=== PATIENT | male | born 1965 | race Two or more races ===

== ENCOUNTER 2019-10-20 23:30 | Emergency (ER) | payer SELFPAY ==
[~2019-10-20] VITALS: Ht 162.6 cm; Wt 70.3 kg
[2019-10-20 23:40] VITALS: BP 145/77
[2019-10-21] MEDS ORDERED: INSULIN REGULAR, HUMAN 100 UNIT/ML 10 ML VIAL SQ ONE
--- NOTE | 2019-10-21 00:42 | NUR ---
PT BIBLAPD FOR BEING INTOXICATED. UPON ASSESSMENT PT IS AAOX4. AMBULATORY WITH STEADY GAIT. PT STATED HE IS NOT HOMELESS. BG WAS 322, MD AWARE. Patient discharged to home in stable condition. Written and verbal after care instructions given. Patient verbalizes understanding of instruction. Pt ambulated with steady gait. vss.
[2019-11-23] MEDS ORDERED: HYDR-4384 PO (10:49)
== END 2019-10-21 00:46 | disposition home or self-care (01) ==
LOC: ER 23:30
DX: R73.9 Hyperglycemia, unspecified (principal)
CPT/HCPCS: 82962-TC

== ENCOUNTER 2019-10-27 12:59 | Inpatient (IN) | payer OTHER ==
[~2019-10-27] VITALS: Ht 167.6 cm; Wt 67.1 kg
--- NOTE | 2019-10-27 13:00 | NUR ---
PT [id number], from the street, c/o abd pain since yesterday, pt is aaox4, not in respiratory distress, hooked to monitor, kept rested and comfortable, will continue to monitor.
[2019-10-27] MEDS ORDERED: INSU100V7 SQ (13:22)
[2019-10-27] MEDS ORDERED: TRAZ-257 PO (13:22)
[2019-10-27] MEDS ORDERED: pancrelipase PO (13:22)
[2019-10-27] MEDS ORDERED: QUET100T PO (13:22)
[2019-10-27] MEDS ORDERED: SERT50TA PO (13:22)
[2019-10-27] MEDS ORDERED: GABA600T12 PO (13:22)
[2019-10-27] MEDS ORDERED: ALBU90AE2 IH (13:22)
[2019-10-27] MEDS ORDERED: FAMO20TA8 PO (13:22)
[2019-10-27] MEDS ORDERED: GUAI-671 PO (13:22)
[2019-10-27] MEDS ORDERED: LIDO30CR TP (13:22)
[2019-10-27] MEDS ORDERED: BLOO-1672 MC (13:22)
--- NOTE | 2019-10-27 13:28 | NUR ---
SEEN AND EXAMINED BY ANGELY BARRON
[2019-10-27] MEDS ORDERED: ONDANSETRON HCL/PF 4 MG/2 ML VIAL IVP ONE (13:30)
[2019-10-27] MEDS ORDERED: MORPHINE SULFATE INJ 2 MG/ML DISP.SYRIN IV ONE ×3 (13:30→17:30)
[2019-10-27] MEDS ORDERED: IV NS 0.9% 1,000 ML BAG IV ONE ×2 (13:30→17:30)
--- NOTE | 2019-10-27 13:45 | NUR ---
pt iv line established, blood drawn and sent to lab.
--- NOTE | 2019-10-27 13:49 | NUR ---
urinal given but unable to provide urine specimen this time.
[2019-10-27] MEDS ORDERED: ONDANSETRON HCL/PF 4 MG/2 ML VIAL ONE (13:51)
[2019-10-27] MEDS ORDERED: MORPHINE SULFATE INJ 4 MG/ML DISP.SYRIN ONE ×3 (13:51→17:09)
[2019-10-27 13:52] LABS: BASOPHILS # (AUTO) 0.1 /CMM (0.0-0.2); BASOPHILS % (AUTO) 0.7 % (0.0-2.0); EOSINOPHILS % (AUTO) 0.2 % (0.0-6.0); HEMATOCRIT 37 % (39-51); HEMOGLOBIN 12.6 g/dL (13.5-17.5); LYMPHOCYTES # (AUTO) 0.9 /CMM (0.8-4.8); LYMPHOCYTES % (AUTO) 7.8 % (20.0-44.0); MEAN CORPUSCULAR HGB CONC 34 g/dl (31.0-36.0); MEAN CORPUSCULAR VOLUME 89 fL (80-96); MONOCYTES # (AUTO) 0.2 /CMM (0.1-1.30); MONOCYTES % (AUTO) 2.3 % (2.0-12.0); NEUTROPHILS # (AUTO) 9.9 /CMM (1.8-8.9); PLATELET COUNT (AUTO) 252 /CMM (150-450); RED BLOOD CELL COUNT(AUTO) 4.15 MIL/uL (4.5-6.0); WHITE BLOOD COUNT (AUTO) 11.1 K/uL (4.3-11.0)
[2019-10-27 14:14] LABS: BILIRUBIN,DIRECT 0.1 mg/dL (0.0-0.2); BILIRUBIN,TOTAL 0.5 mg/dL (0.2-1.0); CALCIUM, SERUM 9.3 mg/dL (8.5-10.1); POTASSIUM 4.7 mmol/L (3.5-5.1); TOTAL PROTEIN, SERUM 7.9 g/dL (6.4-8.2)
[2019-10-27] MEDS ORDERED: IOHEXOL-300 100 ML VIAL IV ONE (15:23)
[2019-10-27] MEDS ORDERED: IV NS 0.9% 250 ML IV ONE ×2 (15:23→17:48)
[2019-10-27] MEDS ORDERED: CT SWABBABLE VALVE TRANS SET 1 EA INFUS.SET MC ONE ×2 (15:23→17:48)
[2019-10-27 15:36] LABS: APPEARANCE,URINE Clear (CLEAR); BILIRUBIN,URINE Negative (NEGATIVE); BLOOD, URINE Negative Ery/uL (NEGATIVE); COLOR,URINE Light yellow (YELLOW); KETONES,URINE 15 (NEGATIVE); LEUKOCYTE ESTERASE ,URINE Negative (NEGATIVE); NITRITE, URINE Negative (NEGATIVE); PROTEIN,URINE Negative (NEGATIVE); UGLUCOSE >=1000 mg/dL (NEGATIVE); UROBILINOGEN,URINE 0.2 EU/dL (0.2)
[2019-10-27 15:44] LABS: CALCIUM, SERUM 8.8 mg/dL (8.5-10.1); POTASSIUM 4.6 mmol/L (3.5-5.1)
[2019-10-27 16:13] LABS: BACTERIA,URINE None seen /HPF (None Seen); RBC,URINE NONE SEEN /HPF (0-2); SQUAMOUS EPITHELIAL CELL,UR Rare /HPF (None Seen); WBC,URINE 0-2 /HPF (0-3)
[2019-10-27 16:14] LABS: MUCUS,URINE Few /LPF (None Seen); URINE AMORPHOUS PHOSPHATES Few /HPF (None Seen)
[2019-10-27] MEDS ORDERED: PIPERACILLIN /TAZOBACTAM 3.375 G in IV D5W 50 ML IV ONE (17:30)
[2019-10-27] MEDS ORDERED: MEROPENEM 1,000 MG in IV NS 0.9% 100 ML IV ONE (17:30)
--- NOTE | 2019-10-27 17:45 | NUR ---
PT IS WHEELED TO CT SCAN VIA [facility].
[2019-10-27] MEDS ORDERED: IOHEXOL-350 100 ML VIAL IV ONE (17:48)
--- NOTE | 2019-10-27 19:10 | NUR ---
REPORT GIVEN TO LAURA DESOUZA FOR YOLANDA.
--- NOTE | 2019-10-27 19:17 | NUR ---
PAGED DR. SHELBY GENERAL SURGERY.
[2019-10-27] MEDS ORDERED: HYDROMORPHONE 1 MG/1 ML DISP.SYRIN ONE (19:26)
[2019-10-27] MEDS ORDERED: METRONIDAZOLE 500MG/ NS 100ML 100 ML IV ONE (19:26)
[2019-10-27] MEDS ORDERED: FLAGYL/NS RTU 500 MG/100 ML PIGGYBACK IV ONE (19:30)
[2019-10-27] MEDS ORDERED: HYDROMORPHONE INJ 0.5 MG/0.5 ML SYRINGE IV ONE (19:30)
--- NOTE | 2019-10-27 19:46 | NUR ---
NURSING SUP GAVE ICU BED 256.
--- NOTE | 2019-10-27 20:12 | NUR ---
REPORT GIVEN TO LAURA HOLLY FOR YOLANDA
--- NOTE | 2019-10-27 20:13 | NUR ---
PT GOING TO 259
[2019-10-27] MEDS ORDERED: Z GUARD REMEDY 2 OZ OINT TP PRN (21:00)
[2019-10-27] MEDS ORDERED: ACETAMINOPHEN 325 MG TABLET PO PRN (21:00)
--- NOTE | 2019-10-27 21:18 | NUR ---
ESCROW CLOSER NOTES ADMITTED A54 Y/O MALE A/O X4 BLE TO MAKE NEEDS KNOWN , WITH ADMITTING DX OF SEVERE SEPSIS , PT IS NPO STATUS , BODY CHECK DONE NO SKIN ISSUE EXCEPT THE ABDOMINAL PUNCTURE SITE PROCEDURE DONE IN REPLACED BY [facility] .NO BLEEDING NOTED PT ON ROOM AIR ON TELE MONITOR SR SATING 100%, ALL NEEDS ATTENDED TOO CALL LIGHT WITHIN REACH , KEPT PTS CLEAN DRY AND COMFORTABLE .V/S STABLE AFEBRILE .WILL CONTINUE TO MONITOR PT WITH IV SITE INTACT AND PATENT ON RIGHT AC AT 18 GAUGE.
--- NOTE | 2019-10-27 21:21 | NUR ---
PT TRANSPORTED TO UNIT ON [facility] W/ ACLS PROTOCOL. EMT AND RN AT BEDSIDE. NAD NOTED. PT AMBULATED FROM [facility] TO BED W/O ASSIST ON STEADY GAIT
[2019-10-27] MEDS ORDERED: IV NS 0.9% 250 ML IV PRN (21:30)
[2019-10-27 21:43] VITALS: BP 135/101
[2019-10-27 22:00] VITALS: BP 147/87
[2019-10-27] MEDS ORDERED: IV D5 LR 1,000 ML IV PRN (22:00)
[2019-10-27] MEDS ORDERED: MEROPENEM 1 G in IV NS 0.9% 100 ML IV ONE (22:00)
[2019-10-27] MEDS: HYDROMORPHONE INJ 2 MG/ML DISP.SYRIN IV PRN (22:00)
[2019-10-27] MEDS ORDERED: MEROPENEM 1 G VIAL IV ONE (22:08)
[2019-10-27 23:00] VITALS: BP 135/80
[2019-10-27] MEDS ORDERED: DEXTROSE 50%-WATER 50 ML DISP.SYRIN IV PRN (23:00)
[2019-10-28] VITALS (16 sets, daily range): BP systolic 124–169; BP diastolic 70–99
--- NOTE | 2019-10-28 | NUR ---
BLOOD SUGAR FOR 12MN IS 276 MMOL/DL 6 UNITS OF REGULAR INSULIN GIVEN PER SLIDING SCALE PT ON D5LR AT 75CC/HR WILL CHECK BLOOD SUGAR AGAIN AT 6AM.
[2019-10-28] MEDS: BLOOD SUGAR DIAGNOSTIC 1 EACH STRIP IN SCH ×4 (00:47→18:19)
[2019-10-28] MEDS: INSULIN REGULAR, HUMAN 100 UNIT/ML 3 ML VIAL SQ PRN ×3 (00:50→13:16)
[2019-10-28] MEDS ORDERED: MEROPENEM 1 G in IV NS 0.9% 100 ML IV ONE (02:00)
[2019-10-28] MEDS: HYDROMORPHONE INJ 2 MG/ML DISP.SYRIN IV PRN ×2 (02:25→07:43)
[2019-10-28 04:47] LABS: BASOPHILS % (AUTO) 0.3 % (0.0-2.0); EOSINOPHILS % (AUTO) 0.9 % (0.0-6.0); HEMATOCRIT 36 % (39-51); HEMOGLOBIN 12.5 g/dL (13.5-17.5); LYMPHOCYTES # (AUTO) 1.2 /CMM (0.8-4.8); LYMPHOCYTES % (AUTO) 13.1 % (20.0-44.0); MEAN CORPUSCULAR HGB CONC 35 g/dl (31.0-36.0); MEAN CORPUSCULAR VOLUME 91 fL (80-96); MONOCYTES # (AUTO) 0.7 /CMM (0.1-1.30); MONOCYTES % (AUTO) 7.3 % (2.0-12.0); NEUTROPHILS # (AUTO) 7.1 /CMM (1.8-8.9); NEUTROPHILS % (AUTO) 78.4 % (43.0-81.0); PLATELET COUNT (AUTO) 224 /CMM (150-450); RED BLOOD CELL COUNT(AUTO) 3.99 MIL/uL (4.5-6.0)
[2019-10-28 05:10] LABS: ALBUMIN 3.4 g/dL (3.4-5.0); BILIRUBIN,TOTAL 0.8 mg/dL (0.2-1.0); CALCIUM, SERUM 8.3 mg/dL (8.5-10.1); CREATININE 0.9 mg/dL (0.6-1.3); MAGNESIUM 1.8 mg/dL (1.8-2.4); PHOSPHORUS 2.5 mg/dL (2.5-4.9); POTASSIUM 3.9 mmol/L (3.5-5.1); TOTAL PROTEIN, SERUM 6.9 g/dL (6.4-8.2)
[2019-10-28 05:11] LABS: THYROID STIMULATING HORMONE 6.297 uIU/mL (0.358-3.74)
[2019-10-28] MEDS ORDERED: METRONIDAZOLE 500MG/ NS 100ML 100 ML IV ONE (05:30)
[2019-10-28] MEDS: METRONIDAZOLE 500MG/ NS 100ML 500 MG in PREMIX 1 EA IV SCH ×3 (05:32→20:24)
--- NOTE | 2019-10-28 06:39 | NUR ---
RN CLOSING NOTES: PATIENT IN BED, ASLEEP, EASILY AROUSABLE. NO RESPIRATORY DISTRESS, TOLERATING ROOM AIR WELL. NO PAIN AT THIS TIME. BLOOD SUGAR AT 0600 163. COVERAGE GIVEN ORDERED. WILL ENDORSE TO AM SHIFT NURSE FOR CONTINUITY OF CARE.
[2019-10-28] MEDS: ONDANSETRON HCL/PF 4 MG/2 ML VIAL IVP PRN ×2 (07:51→18:18)
[2019-10-28] MEDS ORDERED: HYDROMORPHONE INJ 2 MG/ML DISP.SYRIN ONE ×2 (08:56→10:32)
[2019-10-28] MEDS ORDERED: ROCURONIUM BROMIDE 50 MG/5 ML ONE (08:56)
--- NOTE | 2019-10-28 10:25 | NUR ---
RN NOTE 0715: Received patient A/Ox4. With c/o 9/10 mid abdominal pain, Dilaudid and Zofran given, also with c/o mild nausea. Dr. Jhaveri called with plan for exlap, patient aware and consent signed. Per MD he will be here around 0900. SR 80's on the monitor. Remained NPO. RAC PIV intact, D5LR @ 75 ongoing. 0900: Picked up by OR personnels. VSS. Preop checklist done. Patient aware for the procedure.
[2019-10-28] MEDS ORDERED: ONDANSETRON HCL/PF 4 MG/2 ML VIAL ONE (10:36)
[2019-10-28] MEDS ORDERED: FENTANYL PF 100MCG/2ML AMPUL ONE (10:55)
--- NOTE | 2019-10-28 12:33 | NUR ---
RN NOTE LA 2.2, informed Dr. Jhaveri, awaiting for call back.
[2019-10-28] MEDS: MEROPENEM 1 G in IV NS 0.9% 100 ML IV SCH ×2 (12:44→20:23)
[2019-10-28] MEDS ORDERED: MEROPENEM 1 G in IV NS 0.9% 100 ML IV SCH (13:00)
[2019-10-28] MEDS: MORPHINE SULFATE INJ 2 MG/ML DISP.SYRIN IV PRN ×4 (13:59→23:15)
--- NOTE | 2019-10-28 15:50 | NUR ---
ENTERPRISE RECORDS ANALYST NOTES PATIENT RECEIVED AWAKE IN BED, NO RESPIRATORY DISTRESS, COMPLAINING OF ABDOMINAL PAIN /, WILL ADMINISTER PAIN MEDICATION ORDERED. NO N/V. SKIN WARM TO TOUCH, IV ACCESS SITE ON THE RAC #18G, INTACT AND PATENT. SKIN ASSESSED, NO SKIN BREAKDOWN, DRESSING C/D/I ON ABDOMINAL PUNCTURE SITE. PATIENT'S BELONGINGS ACCOUNTED FOR AND SIGNED. PATIENT'S NEEDS ATTENDED, BED ON LOWEST LOCKED POSITION, CALL LIGHT WITHIN REACH. WILL CONTINUE TO MONITOR.
--- NOTE | 2019-10-28 16:04 | NUR ---
RN NOTE Transferred patient to tele 323-2 using ACLS protocol. No any significant changes. Abdominal Sx site dressing CDI. LA 2.2, MS aware, continue ATB therapy. PIV intact, IVF infusing as ordered. Report given to Tiffanie SANCHEZ for YOLANDA.
--- NOTE | 2019-10-28 18:50 | NUR ---
MANAGER FLOAT NOTES PATIENT RESTING IN BED, NO RESPIRATORY DISTRESS, NO C/O PAIN AT THIS TIME. SKIN WARM TO TOUCH, IV ACCESS SITE ON THE RAC #18G, INTACT AND PATENT. SKIN WARM TO TOUCH, IV ACCESS SITES INTACT AND PATENT. PATIENT'S NEEDS ATTENDED, BED ON LOWEST LOCKED POSITION, CALL LIGHT WITHIN REACH. WILL ENDORSE TO ONCOMING NURSE.
--- NOTE | 2019-10-28 19:32 | NUR ---
TELE/RN OPENING NOTES: RECEIVED PATIENT AWAKE IN BED, NO RESPIRATORY DISTRESS, NO COMPLAINS OF PAIN AT THIS TIME, IV ACCESS SITE ON THE RAC #18G, INTACT AND PATENT. SKIN ASSESSED, NO SKIN BREAKDOWN, DRESSING C/D/I ON ABDOMINAL PUNCTURE SITE. PATIENT'S NEEDS ATTENDED AT THIS TIME, SAFETY MEASURES IN PLACE. BED ON LOWEST LOCKED POSITION, CALL LIGHT WITHIN REACH WITH SR UP X2. WILL CONTINUE TO MONITOR PT. ACCORDINGLY.
[2019-10-29] VITALS: BP 148/80
[2019-10-29] MEDS: BLOOD SUGAR DIAGNOSTIC 1 EACH STRIP IN SCH ×5 (00:05→23:01)
[2019-10-29] MEDS: INSULIN REGULAR, HUMAN 100 UNIT/ML 3 ML VIAL SQ PRN ×4 (00:10→23:05)
[2019-10-29] MEDS: ONDANSETRON HCL/PF 4 MG/2 ML VIAL IVP PRN ×3 (01:27→17:59)
[2019-10-29] MEDS: MORPHINE SULFATE INJ 2 MG/ML DISP.SYRIN IV PRN ×8 (02:46→23:09)
[2019-10-29 04:37] VITALS: BP 144/89
[2019-10-29] MEDS: MEROPENEM 1 G in IV NS 0.9% 100 ML IV SCH ×3 (04:37→20:56)
[2019-10-29] MEDS: METRONIDAZOLE 500MG/ NS 100ML 500 MG in PREMIX 1 EA IV SCH ×3 (04:37→20:04)
--- NOTE | 2019-10-29 07:26 | NUR ---
LOG YARD MANAGER NOTES RECEIVED REPORT ON PATIENT FROM PM NURSE. PATIENT IS SLEEPING IN BED, APPEARS TO BE COMFORTABLE. NO SOB/ RESPIRATORY DISTRESS NOTED. CALL LIGHT IS WITHIN REACH. BED IN LOWEST LOCKED POSITION WITH SIDE RAILS UP X2. WILL CONTINUE TO MONITOR PATIENT.
--- NOTE | 2019-10-29 07:33 | NUR ---
TELE/RN CLOSING NOTES: PATIENT RESTING IN BED, NO RESPIRATORY DISTRESS, NO C/O PAIN AT THIS TIME. SKIN WARM TO TOUCH, IV ACCESS SITES INTACT AND PATENT. PAIN WAS MANAGED THROUGHOUT THE SHIFT. PATIENT'S NEEDS ATTENDED, BED ON LOWEST LOCKED POSITION, CALL LIGHT WITHIN REACH. WILL ENDORSE TO ONCOMING NURSE.
[2019-10-29 16:00] VITALS: BP 147/88
--- NOTE | 2019-10-29 19:00 | NUR ---
LAURA lovelace opening notes Received Pt from morning nurse. Pt is alert and orientedX4. Respiration is normal. No SOB. No S/s of distress noted. IV sites at RAC# 18 is clean, intact, patent and SL. IV sites at LFA#18 is clean, intact, patent and SL. Abdominal dressing is clean, intact and dry. Safety precautions is maintained. Bed at low position, brakes locked, siderails upX2, and call light is within reach. Will continue to monitor. Addendum: 10/29/19 at 2116 by JIN CHARLES RN Pt is resting in bed comfortably.
--- NOTE | 2019-10-29 19:14 | NUR ---
MS RN CLOSING NOTES PATIENT IS IN BED WATCHING TV. BED IS IN LOWEST LOCKED POSITION WITH SIDE RAILS UP X2. NO SOB/ RESPIRATORY DISTRESS NOTED. CALL LIGHT IS WITHIN REACH. MEDS HAVE BEEN GIVEN. WILL ENDORSE REPORT TO PM NURSE.
[2019-10-29 20:00] VITALS: BP 147/88
[2019-10-29 20:00] LABS: BASOPHILS % (AUTO) 0.2 % (0.0-2.0); EOSINOPHILS % (AUTO) 3.9 % (0.0-6.0); HEMATOCRIT 37 % (39-51); HEMOGLOBIN 12.5 g/dL (13.5-17.5); LYMPHOCYTES # (AUTO) 0.9 /CMM (0.8-4.8); LYMPHOCYTES % (AUTO) 8.3 % (20.0-44.0); MEAN CORPUSCULAR HGB CONC 33 g/dl (31.0-36.0); MEAN CORPUSCULAR VOLUME 92 fL (80-96); MONOCYTES # (AUTO) 0.4 /CMM (0.1-1.30); MONOCYTES % (AUTO) 3.4 % (2.0-12.0); NEUTROPHILS # (AUTO) 8.9 /CMM (1.8-8.9); NEUTROPHILS % (AUTO) 84.2 % (43.0-81.0); PLATELET COUNT (AUTO) 210 /CMM (150-450); RED BLOOD CELL COUNT(AUTO) 4.06 MIL/uL (4.5-6.0); WHITE BLOOD COUNT (AUTO) 10.6 K/uL (4.3-11.0)
[2019-10-29 20:15] LABS: CALCIUM, SERUM 8.5 mg/dL (8.5-10.1); MAGNESIUM 1.7 mg/dL (1.8-2.4); PHOSPHORUS 2.1 mg/dL (2.5-4.9)
--- NOTE | 2019-10-29 20:17 | NUR ---
RN medsurg notes Pt is complaining of pain on his abdomen and requesting pain meds. Administered morphine 2 mg/1 ml IV push as ordered for pain on abdomen. VS is stable. Safety precautions is maintained. Will continue to monitor.
[2019-10-29 20:27] VITALS: BP 147/88
--- NOTE | 2019-10-29 22:00 | NUR ---
RN medsurg notes Called and informed Dr. Chappell regarding Pt's lab. na 129, phos 2.1, and mag 1.7. Received order from . magnesium 1 gm and neutra phos 2 packet. Order carried out. Will continue to monitor.
[2019-10-29] MEDS: Magnesium 1GM/D5W 100ML PREMIX 100 ML IV SCH ×2 (22:17→23:47)
[2019-10-29] MEDS ORDERED: NEUTRA PHOS 1 POWD.PACKET PO ONE (22:30)
[2019-10-29 23:00] VITALS: BP 156/84
--- NOTE | 2019-10-29 23:09 | NUR ---
RN saulsurlucy notes Pt si complaining of pain on his abdomen and requesting morphine. Pt stated "I'm in pain. I need my morphine now." Administered morphine 2 mg/iv push as ordered for pain. VS is taken. Safety precautions is maintained. Will continue to monitor. BP 156/84, PULSE 80, TEMP 98.8, RESP 20 O2 SAT IS 100%.
[2019-10-30 01:19] VITALS: BP 136/77
[2019-10-30] MEDS: MORPHINE SULFATE INJ 2 MG/ML DISP.SYRIN IV PRN ×8 (01:22→23:14)
[2019-10-30] MEDS: ONDANSETRON HCL/PF 4 MG/2 ML VIAL IVP PRN ×3 (03:07→19:57)
--- NOTE | 2019-10-30 03:08 | NUR ---
RN medsurg notes Pt is feeling nauseated and requesting med. Administered zofran 4 mg/2 ml iv push as ordered for nausea. Will continue to monitor.
[2019-10-30 04:02] VITALS: BP 146/95
[2019-10-30] MEDS: METRONIDAZOLE 500MG/ NS 100ML 500 MG in PREMIX 1 EA IV SCH ×3 (04:07→20:08)
[2019-10-30] MEDS: MEROPENEM 1 G in IV NS 0.9% 100 ML IV SCH ×3 (04:08→21:29)
[2019-10-30] MEDS: INSULIN REGULAR, HUMAN 100 UNIT/ML 3 ML VIAL SQ PRN ×4 (06:19→23:17)
[2019-10-30] MEDS: BLOOD SUGAR DIAGNOSTIC 1 EACH STRIP IN SCH ×3 (06:21→17:27)
--- NOTE | 2019-10-30 06:24 | NUR ---
RN medsur notes Pt refused to have blood drawn. Made aware risks and benefits. Pt stated " you guys keep waking me up. Come back later." Will endorse to morning nurse.
--- NOTE | 2019-10-30 07:00 | NUR ---
RN medsurg closing notes Pt is resting in bed comfortably. Pt is alert and orientedX4. Respiration is normal. No SOB. No S/S of distress noted. Pt is in stable condition. IV sites at RAC# 18 is clean, intact, patent, SL. IV sites at LFA # 18 is clean, intact, patent and infusing well. Routine meds were given as ordered. Kept Pt clean, dry and comfortable. Safety precautions is maintained. Bed at low position, brakes locked, side rails upX2 and call light is within reach. Will endorse to morning nurse for YOLANDA.
--- NOTE | 2019-10-30 07:31 | NUR ---
RN OPENING NOTE PT WAS RECEIVED IN BED AT LOWEST AND LOCKED POSITION WITH SIDE RAILS UP X2, A/O X4 BREATHING EVEN AND UNLABORED ON RA, S/P SURGERY WITH ON 10/28/19, IV ARE PATENT AND INTACT, PT REFUSED BLOOD DRAW THIS AM, SAFETY PRECAUTIONS IN PLACE, CALL LIGHT IN REACH, WILL MONITOR ACCORDINGLY
[2019-10-30 08:00] VITALS: BP 120/83
[2019-10-30 09:19] LABS: BASOPHILS % (AUTO) 0.4 % (0.0-2.0); EOSINOPHILS % (AUTO) 0.7 % (0.0-6.0); HEMATOCRIT 36 % (39-51); HEMOGLOBIN 12.1 g/dL (13.5-17.5); LYMPHOCYTES # (AUTO) 1.7 /CMM (0.8-4.8); LYMPHOCYTES % (AUTO) 18.4 % (20.0-44.0); MEAN CORPUSCULAR HGB CONC 34 g/dl (31.0-36.0); MEAN CORPUSCULAR VOLUME 91 fL (80-96); MONOCYTES # (AUTO) 0.7 /CMM (0.1-1.30); MONOCYTES % (AUTO) 7.1 % (2.0-12.0); NEUTROPHILS # (AUTO) 6.8 /CMM (1.8-8.9); NEUTROPHILS % (AUTO) 73.4 % (43.0-81.0); PLATELET COUNT (AUTO) 215 /CMM (150-450); RED BLOOD CELL COUNT(AUTO) 3.96 MIL/uL (4.5-6.0); WHITE BLOOD COUNT (AUTO) 9.3 K/uL (4.3-11.0)
[2019-10-30 09:34] LABS: CREATININE 0.9 mg/dL (0.6-1.3); MAGNESIUM 1.9 mg/dL (1.8-2.4); PHOSPHORUS 2.4 mg/dL (2.5-4.9); POTASSIUM 3.6 mmol/L (3.5-5.1)
[2019-10-30] MEDS ORDERED: K PHOS NEUTRAL 250 MG TABLET PO ONE (11:30)
[2019-10-30 16:00] VITALS: BP 127/80
--- NOTE | 2019-10-30 18:23 | NUR ---
RN CLOSING NOTE PT IN BED AT LOWEST AND LOCKED POSITION WITH SIDE RAILS UP X2, A/O X4 BREATHING EVEN AND UNLABORED ON RA, IV ARE PATENT AND INTACT, SAFETY PRECAUTIONS IN PLACE, CALL LIGHT IN REACH, ALL NEEDS ATTENDED TO, WILL ENDORSE TO NIGHT RN FOR YOLANDA.
[2019-10-30] MEDS: IV NS 0.9% 1,000 ML IV PRN (18:49)
--- NOTE | 2019-10-30 19:25 | NUR ---
MS RN OPENING NOTES PATIENT AWAKE AND RESTING IN BED COMFORTABLY. A/OX4. ABLE TO VERBALIZE NEEDS. ON ROOM AIR. NO S/S OF ACUTE RESPIRATORY DISTRESS AND NO COMPLAINTS OF PAIN AT THIS TIME. IV PRESENT ON RIGHT AC, SIZE 18 & LEFT FOREARM, SIZE 18, BOTH INTACT & PATENT, HEP LOCKED. SAFETY MEASURES IN PLACE. BED LOCKED, ALARM ON, SEMI-GONSALES'S POSITION, CALL LIGHT WITHIN REACH. WILL CONTINUE TO MONITOR.
--- NOTE | 2019-10-30 19:57 | NUR ---
MS RN NOTES PATIENT COMPLAINING OF UPPER ABDOMINAL PAIN RATED 9/10. PER PATIENT'S REQUEST, ADMINISTERED PRN MORPHINE 2MG. VITAL SIGNS - BP: 128/89 HR: 68 RR: 17 SPO2: 98 ON ROOM AIR. SAFETY MEASURES IN PLACE, CALL LIGHT WITHIN REACH. WILL CONTINUE TO MONITOR.
[2019-10-30 20:00] VITALS: BP 128/89
[2019-10-31] MEDS: BLOOD SUGAR DIAGNOSTIC 1 EACH STRIP IN SCH ×4 (00:05→17:14)
[2019-10-31] MEDS: MORPHINE SULFATE INJ 2 MG/ML DISP.SYRIN IV PRN ×7 (03:11→23:28)
[2019-10-31 03:20] VITALS: BP 130/83
[2019-10-31] MEDS: METRONIDAZOLE 500MG/ NS 100ML 500 MG in PREMIX 1 EA IV SCH ×3 (04:05→20:06)
[2019-10-31] MEDS: MEROPENEM 1 G in IV NS 0.9% 100 ML IV SCH ×3 (05:18→20:08)
[2019-10-31] MEDS: INSULIN REGULAR, HUMAN 100 UNIT/ML 3 ML VIAL SQ PRN ×3 (06:15→17:11)
--- NOTE | 2019-10-31 07:30 | NUR ---
MS/RN Opening note Received patient AOx 4, able to responds all stimuli. patient refused take vital sign this morning, no c/o pain at this time. Respiratory even and unlabored with room air. No s/s of adverse reaction from atb therapy. Skin iswarm to touch, clean/dry, intact IV site. Keep lower position of bed with elevated HOB. Call light within reach, will continue to monitor.
--- NOTE | 2019-10-31 07:32 | NUR ---
MS RN CLOSING NOTES PATIENT SLEEPING IN BED. A/OX4. ABLE TO VERBALIZE NEEDS. ON ROOM AIR. NO S/S OF ACUTE RESPIRATORY DISTRESS AND NO COMPLAINTS OF PAIN AT THIS TIME. IV PRESENT ON RIGHT AC, SIZE 18 & LEFT FOREARM, SIZE 18, BOTH INTACT & PATENT, HEP LOCKED. SAFETY MEASURES IN PLACE. BED LOCKED, ALARM ON, SEMI-GONSALES'S POSITION, CALL LIGHT WITHIN REACH. WILL ENDORSE TO DAY SHIFT NURSE TO FOLLOW PLAN OF CARE
--- NOTE | 2019-10-31 10:00 | NUR ---
Patient refused physical therapy, Dr. Jhaveri made aware.
[2019-10-31 16:00] VITALS: BP 118/77
[2019-10-31 17:14] LABS: CALCIUM, SERUM 8.2 mg/dL (8.5-10.1); CREATININE 1.2 mg/dL (0.6-1.3); MAGNESIUM 1.7 mg/dL (1.8-2.4); PHOSPHORUS 3.1 mg/dL (2.5-4.9); POTASSIUM 3.7 mmol/L (3.5-5.1)
--- NOTE | 2019-10-31 18:30 | NUR ---
MS/RN Closing note patient in bed comfortably, no c/o ABD pain at this time. Noticed BS high after administered insulin made aware Dr Davalos and received order sliding scale change mild to moderate. Skin is warm to touch, clean/dry, intact IV sire. Respiratory even and unlabored with room air. Keep lower position of the bed with elevated HOB, Call light within reach, will endorse machinist 2nd shift.
[2019-10-31 18:35] LABS: THYROID STIMULATING HORMONE 8.942 uIU/mL (0.358-3.74); URIC ACID 3.9 mg/dL (2.6-7.2)
[2019-10-31] MEDS: IV NS 0.9% 1,000 ML IV PRN (19:46)
[2019-10-31 20:00] VITALS: BP 125/73
[2019-10-31] MEDS ORDERED: DEXTROSE 50%-WATER 50 ML DISP.SYRIN IV PRN (20:30)
[2019-10-31] MEDS: BLOOD SUGAR DIAGNOSTIC 1 EACH STRIP VI SCH (21:59)
[2019-10-31] MEDS ORDERED: BLOOD SUGAR DIAGNOSTIC 1 EACH STRIP IN SCH (22:00)
[2019-10-31] MEDS: *INSULIN REGULAR(HUMULIN R)HUM 100 UNIT/ML VIAL SQ PRN (22:02)
--- NOTE | 2019-10-31 23:20 | NUR ---
placed case management and social service consult. patient asking about discharge. reports he is recent resident of sober living home and he has lost touch with them. patient asked if he would like ccase management to come and see him to discuss discharge and he agreed. case management consulted for dc planning. social psychologist consult placed for hx of drug abuse per protocol.
[2019-11-01] MEDS: MORPHINE SULFATE INJ 2 MG/ML DISP.SYRIN IV PRN ×4 (03:13→17:02)
[2019-11-01] MEDS: METRONIDAZOLE 500MG/ NS 100ML 500 MG in PREMIX 1 EA IV SCH ×2 (04:09→13:46)
[2019-11-01] MEDS: MEROPENEM 1 G in IV NS 0.9% 100 ML IV SCH ×2 (04:10→13:46)
[2019-11-01] MEDS: IV NS 0.9% 1,000 ML IV PRN (04:10)
[2019-11-01] MEDS: INSULIN REGULAR, HUMAN 100 UNIT/ML 3 ML VIAL SQ PRN ×2 (06:40→17:08)
[2019-11-01] MEDS: BLOOD SUGAR DIAGNOSTIC 1 EACH STRIP VI SCH ×3 (07:26→17:02)
--- NOTE | 2019-11-01 07:30 | NUR ---
MS/RN Opening note Received patient AOx 4, able to responds all stimuli. patient does no c/o pain at this time. Respiratory even and unlabored with room air. No s/s of adverse reaction from atb therapy. Skin iswarm to touch, clean/dry, intact IV site. Keep lower position of bed with elevated HOB. Call light within reach, will continue to monitor.
[2019-11-01 08:00] VITALS: BP_SYST 132; BP_SYST 137; BP_DIAS 88
[2019-11-01] MEDS: *INSULIN REGULAR(HUMULIN R)HUM 100 UNIT/ML VIAL SQ PRN (13:44)
--- NOTE | 2019-11-01 15:27 | NUR ---
SEALER AIRCRAFT and pt's adult protective caseworker Emma met with the pt bedside. Pt states he resides in a sober living through [facility] but cannot seem to remember the phone number to his sober living or a name. SEALER AIRCRAFT gave pt contact number to [facility] . Pt is hoping he will be able to go back to his sober living. Pt's belongings are at the sober living. Pt to call [facility] and f/u with adult protective caseworker Emma regarding d/c plan. Pt states, his father will pick him up from the hospital at time of discharge. SEALER AIRCRAFT provided pt a list of addiction resources which include list of sober livings.
[2019-11-01 16:00] VITALS: BP 153/88
--- NOTE | 2019-11-01 17:55 | NUR ---
MS/RN Note Patient having dinner, waiting his father pic him up to take him to the sober living. Patient refused take picture of post Exo, Laparotomy site and treatment. Patient signed discharge instruction, homeless waiver. Skin is warm to touch, respiratory even and unlabored, in stable condition.
--- NOTE | 2019-11-01 18:40 | NUR ---
Pt left facility with accompanied by his father, pt refused change dressing and take post Sx picture on ABD, extra dressing provided when pt discharge, in stable condition.
[2019-11-23] MEDS ORDERED: HYDR-4384 PO (10:49)
== END 2019-11-01 18:43 | disposition home or self-care (01) | DRG 710 ==
LOC: ER 13:06 → ICU 20:50 → TELE 10-28 15:48 → MED 10-29 08:30
PROVIDERS: ADMIT Hospitalist
PROC: 0DJW0ZZ Inspection of Peritoneum, Open Approach (ICD-10-PCS; principal; 2019-10-28)
DX: A41.9 Sepsis, unspecified organism (principal); K55.059 Acute (reversible) ischemia of intestine, part and extent unspecified; R65.21 Severe sepsis with septic shock; E11.65 Type 2 diabetes mellitus with hyperglycemia; K66.8 Other specified disorders of peritoneum; E83.42 Hypomagnesemia; E83.39 Other disorders of phosphorus metabolism; E87.1 Hypo-osmolality and hyponatremia; E87.2 Acidosis; K86.1 Other chronic pancreatitis; K55.9 Vascular disorder of intestine, unspecified; R65.20 Severe sepsis without septic shock; K63.89 Other specified diseases of intestine; K44.9 Diaphragmatic hernia without obstruction or gangrene; D64.9 Anemia, unspecified; K21.9 Gastro-esophageal reflux disease without esophagitis; F29 Unspecified psychosis not due to a substance or known physiological condition; F32.9 Major depressive disorder, single episode, unspecified; Z88.0 Allergy status to penicillin; Z79.51 Long term (current) use of inhaled steroids; Z79.4 Long term (current) use of insulin; F12.90 Cannabis use, unspecified, uncomplicated; Z86.14 Personal history of Methicillin resistant Staphylococcus aureus infection; Z87.01 Personal history of pneumonia (recurrent); Z87.891 Personal history of nicotine dependence; Z91.19 Patient's noncompliance with other medical treatment and regimen; Z68.1 Body mass index [BMI] 19.9 or less, adult
CPT/HCPCS: 36415; 71045-TC; 80048-TC; 80053-TC; 80061-TC; 80076-TC; 81000-TC; 82962-TC; 83605-TC; 83690-TC; 83735-TC; 84100-TC; 84443-TC; 84550-TC; 85025-TC; 85730-TC; 86850-TC; 87040-TC; 87081-TC; 97116-TC; 97530-TC; A4216; G0378; J1100; J1170; J1815; J1885; J2185; J2270; J2405; J2543; J2704; J3010; J3475; J3480; J3490; J7030; J7040; J7050; J7060; Q9967

== ENCOUNTER 2019-11-19 20:54 | Inpatient (IN) | payer OTHER ==
[~2019-11-19] VITALS: Ht 167.6 cm; Wt 51.7 kg
[~2019-11-19 20:54] MED LIST: ALBU90AE2 IH; BLOO-1672 MC; FAMO20TA8 PO; GABA600T12 PO; GUAI-671 PO; INSU100V7 SQ; LIDO30CR TP; QUET100T PO; SERT50TA PO; TRAZ-257 PO; pancrelipase PO
--- NOTE | 2019-11-19 20:56 | NUR ---
PT BIBRA C/O GENERALIZED EXCRUCIATING ABDOMINAL PAIN S/P PANCREATIC SURGERY X 2 WEEKS. +NVD AND SOB. PT AAOX4, RR EVEN AND UNLABORED ON W NAD NOTED. PT CONNECTED TO THE CARDIAC MONITR AND POX. WILL CONTINUE TO MONITOR
[2019-11-19] MEDS ORDERED: IV NS 0.9% 1,000 ML BAG IV ONE (21:00)
[2019-11-19] MEDS ORDERED: MORPHINE SULFATE INJ 2 MG/ML DISP.SYRIN ONE (21:03)
[2019-11-19] MEDS ORDERED: ONDANSETRON HCL/PF 4 MG/2 ML VIAL ONE (21:03)
[2019-11-19 21:19] LABS: BASOPHILS # (AUTO) 0.2 /CMM (0.0-0.2); BASOPHILS % (AUTO) 3.3 % (0.0-2.0); EOSINOPHILS % (AUTO) 2.2 % (0.0-6.0); HEMATOCRIT 35 % (39-51); HEMOGLOBIN 11.8 g/dL (13.5-17.5); LYMPHOCYTES # (AUTO) 1.2 /CMM (0.8-4.8); LYMPHOCYTES % (AUTO) 20.6 % (20.0-44.0); MEAN CORPUSCULAR HGB CONC 34 g/dl (31.0-36.0); MEAN CORPUSCULAR VOLUME 92 fL (80-96); MONOCYTES # (AUTO) 0.3 /CMM (0.1-1.30); MONOCYTES % (AUTO) 5.3 % (2.0-12.0); NEUTROPHILS # (AUTO) 3.9 /CMM (1.8-8.9); NEUTROPHILS % (AUTO) 68.6 % (43.0-81.0); PLATELET COUNT (AUTO) 216 /CMM (150-450); WHITE BLOOD COUNT (AUTO) 5.7 K/uL (4.3-11.0)
--- NOTE | 2019-11-19 21:20 | NUR ---
CALL LIGHT WITHIN REACH
--- NOTE | 2019-11-19 21:20 | NUR ---
BLOOD COLLECTED AND SENT TO LAB
[2019-11-19] MEDS ORDERED: ONDANSETRON HCL/PF - ER 4 MG/2 ML VIAL IV ONE (21:30)
[2019-11-19] MEDS ORDERED: MORPHINE SULFATE INJ 2 MG/ML DISP.SYRIN IV ONE (21:30)
[2019-11-19 21:35] LABS: ALBUMIN 3.5 g/dL (3.4-5.0); BILIRUBIN,DIRECT 0.1 mg/dL (0.0-0.2); BILIRUBIN,TOTAL 0.3 mg/dL (0.2-1.0); CALCIUM, SERUM 8.6 mg/dL (8.5-10.1); CREATININE 1.1 mg/dL (0.6-1.3); POTASSIUM 5.6 mmol/L (3.5-5.1); TOTAL PROTEIN, SERUM 6.9 g/dL (6.4-8.2)
[2019-11-19] MEDS ORDERED: IV NS 0.9% 250 ML IV ONE (21:36)
[2019-11-19] MEDS ORDERED: IOHEXOL-300 100 ML VIAL IV ONE (21:36)
[2019-11-19] MEDS ORDERED: CT SWABBABLE VALVE TRANS SET 1 EA INFUS.SET MC ONE (21:36)
--- NOTE | 2019-11-19 21:55 | NUR ---
PT BROUGHT TO CT
--- NOTE | 2019-11-19 22:07 | NUR ---
BACK FROM CT
--- NOTE | 2019-11-20 00:15 | NUR ---
341 GLUCOSE. MADE AWARE
--- NOTE | 2019-11-20 00:16 | NUR ---
BED ASSIGNMENT 113-1
--- NOTE | 2019-11-20 00:24 | NUR ---
REPORT GIVEN TO RUDY RN
[2019-11-20] MEDS ORDERED: INSU100V7 SQ (00:28)
[2019-11-20] MEDS ORDERED: QUET100T PO (00:28)
[2019-11-20] MEDS ORDERED: GABA-532 PO (00:29)
[2019-11-20] MEDS ORDERED: ZOLP10TA2 PO (00:29)
[2019-11-20] MEDS ORDERED: Z GUARD REMEDY 2 OZ OINT TP PRN (00:30)
[2019-11-20] MEDS ORDERED: DEXTROSE 50%-WATER 50 ML DISP.SYRIN IV PRN (00:30)
[2019-11-20] MEDS ORDERED: ZOLPIDEM TARTRATE 5 MG TABLET PO PRN (00:30)
[2019-11-20] MEDS ORDERED: ACETAMINOPHEN 325 MG TABLET PO PRN (00:30)
[2019-11-20] MEDS ORDERED: MAG HYDROX/AL HYDROX/SIMETH 30 ML UDC PO PRN (00:30)
[2019-11-20] MEDS ORDERED: LORAZEPAM INJ 2 MG/ML VIAL IV PRN (00:30)
[2019-11-20] MEDS ORDERED: ONDANSETRON HCL/PF 4 MG/2 ML VIAL IVP PRN (00:30)
[2019-11-20] MEDS ORDERED: MAGNESIUM HYDROXIDE 30 ML UDC PO PRN (00:30)
--- NOTE | 2019-11-20 00:38 | NUR ---
PT TRASNPORTED TO ROOM 113 IN STABLE CONDITION
[2019-11-20] MEDS ORDERED: Folic acid 1 MG/0.2 ML VIAL ONE (01:05)
[2019-11-20] MEDS ORDERED: Thiamine 100 MG/ML VIAL ONE (01:06)
[2019-11-20] MEDS: Folic acid 1 MG in IV D5W 50 ML IV SCH ×2 (01:24→23:30)
[2019-11-20] MEDS: Thiamine 100 MG in IV D5W 50 ML IV SCH (01:25)
[2019-11-20] MEDS: IV D5/ 0.9% NACL 1,000 ML IV PRN ×2 (01:29→19:06)
[2019-11-20 01:37] VITALS: BP 120/79
[2019-11-20] MEDS: INSULIN REGULAR, HUMAN 100 UNIT/ML 3 ML VIAL SQ PRN ×4 (01:42→21:04)
[2019-11-20] MEDS: BLOOD SUGAR DIAGNOSTIC 1 EACH STRIP IN SCH ×6 (01:43→20:17)
[2019-11-20 04:00] VITALS: BP 115/74
[2019-11-20] MEDS: MORPHINE SULFATE INJ 2 MG/ML DISP.SYRIN IV PRN ×4 (05:55→21:37)
[2019-11-20 08:00] VITALS: BP 102/66
--- NOTE | 2019-11-20 08:05 | NUR ---
EYEGLASS CUTTER NOTES PT IS IN BED RESTING, A/OX4. NPO ORDERED. ON IV FLUIDS RUNNING PRESCRIBED, BEN WELL, IV LINES PATENT, DRESSING IN PLACE. SURGICAL SIGHT CLEAN AND NO DRAINAGE NOTED. NOT COVERED WITH DRESSING, KADEN IN PLACE. PT IS C/O PAIN IN THE ABD AREA, WITH THE LEVEL OF 7. LAST PAIN MED GIVEN AT 0555. WILL CHECK BACK. DR MARKS AT THE BED SIDE. DISCUSSED THE PLAN OF CARE. PT IS AMBULATORY AND ABLE TO MAKE NEEDS KNOWN. BED LOCKED AND IN LOWEST POSITION. CALL LIGHT WITHIN REACH. WILL CONT TO MONITOR.
[2019-11-20] MEDS: PANTOPRAZOLE 40 MG VIAL IV SCH (08:41)
[2019-11-20] MEDS ORDERED: DIATR MEGLU/DIATRIZOATE SODIUM 120 ML BOTTLE (GASTROGRAPHIN) ONE (09:51)
--- NOTE | 2019-11-20 11:15 | NUR ---
SALES ANALYST NOTES PT TRANSFERRED BY RADIOLOGY TECHS TO THE RADIOLOGY DEPARTMENT, FOR THE SMALL INTESTINE BOWEL IMAGING TEST. NO SOB OR DISTRESS NOTED
[2019-11-20 12:00] VITALS: BP 143/77
--- NOTE | 2019-11-20 13:21 | NUR ---
DEVELOPER TRADING SYSTEMS NOTES DR KENDRICK TALAVERA TO GIVE CLEAR LIQUIDS. ORDER PLACED AND CALLED KITCHEN.
--- NOTE | 2019-11-20 14:00 | NUR ---
WAITRESS NOTES CLEAR LIQUIDS DIET TRAY GIVEN TO THE PT. BEN WELL. BED LOCKED AND IN LOWEST POSITION. WILL CONT TO MONITOR
[2019-11-20] MEDS: HYDROCODONE/APAP 5/325MG 1 EACH TABLET PO PRN ×2 (15:23→19:42)
[2019-11-20 16:00] VITALS: BP_SYST 126; BP_DIAS 67; BP_DIAS 78
--- NOTE | 2019-11-20 17:55 | NUR ---
CARBON PAPER COATING SUPERVISOR NOTES BLOOD GLUCOSE POC SHOWS >600, FOLLOWED PROTOCOL. DR MARKS PAGED.
--- NOTE | 2019-11-20 18:15 | NUR ---
KINDER TEACHER NOTES DR MARKS CALLED BACK. SAID TO RECHECK IN 1 HOUR, AND GIVE INSULIN COVERAGE PRESCRIBED ACCORDING TO THE SLIDING SCALE. WILL CONT TO MONITOR
--- NOTE | 2019-11-20 18:50 | NUR ---
TALENT ACQUISITION SOURCER NOTES PT IS IN BED RESTING, A/OX4. ON IV FLUIDS RUNNING PRESCRIBED, BEN WELL, IV LINES PATENT, DRESSING IN PLACE. SURGICAL SIGHT CLEAN AND NO DRAINAGE NOTED. KADEN IN PLACE. PT IS AMBULATORY AND ABLE TO MAKE NEEDS KNOWN. BED LOCKED AND IN LOWEST POSITION. CALL LIGHT WITHIN REACH. WILL ENDORSE TO THE ONCOMING NURSE.
--- NOTE | 2019-11-20 19:10 | NUR ---
RN OPENING NOTE RECEIVED PATIENT IN BED RESTING, WATCHING TV. BREATHING EVEN AND NON LABORED, ON ROOM AIR, NO SOB NOTED AT THIS TIME. ABLE TO MAKE NEEDS KNOWN. AMBULATORY WITHOUT ASSISTANCE. IV HYDRATION ON AND RUNNING. IV SITE NOTED ON RAC. IN NO APPARENT DISTRESS NOTED AT THIS TIME. WILL CONTINUE TO MONITOR.
[2019-11-20 20:00] VITALS: BP 111/69
[2019-11-21] MEDS: Thiamine 100 MG in IV D5W 50 ML IV SCH (00:04)
--- NOTE | 2019-11-21 00:05 | NUR ---
RN NOTE PATIENT REFUSED VITAL CHECK AT THIS TIME. PATIENT VERBALIZED THAT HE DOES NOT WANT TO BE BOTHERED WHILE SLEEPING. PATIENT IS A&O X4. WILL CONTINUE TO MONITOR. Addendum: 11/21/19 at 0054 by CHRISTINE CARR RN Amended: Links added.
[2019-11-21] MEDS: BLOOD SUGAR DIAGNOSTIC 1 EACH STRIP IN SCH ×6 (00:41→22:15)
[2019-11-21 04:00] VITALS: BP 113/60
[2019-11-21] MEDS: MORPHINE SULFATE INJ 2 MG/ML DISP.SYRIN IV PRN ×2 (04:00→08:42)
[2019-11-21] MEDS: INSULIN REGULAR, HUMAN 100 UNIT/ML 3 ML VIAL SQ PRN ×5 (05:28→22:22)
[2019-11-21] MEDS: IV D5/ 0.9% NACL 1,000 ML IV PRN (06:33)
--- NOTE | 2019-11-21 06:42 | NUR ---
LAURA CLOSING NOTE PATIENT IS IN BED RESTING WITH HOB ELEVATED. ' Addendum: 11/21/19 at 0655 by CHRISTINE CARR RN DID NOT FINISH
--- NOTE | 2019-11-21 06:45 | NUR ---
RN CLOSING NOTE PATIENT IS IN BED RESTING WITH HOB ELEVATED. IN NO APPARENT DISTRESS NOTED AT THIS TIME. PATIENT COMPLAINED OF 9/10 ABDOMINAL PAIN IN PONY RIDE OPERATOR. PRN MORPHINE 2 MG IV GIVEN ORDERED. ALL DUE MEDS GIVEN ORDERED AND TOLERATED WELL. ALL NEEDS ATTENDED AND MET. WILL ENDORSE TO AM SHIFT RN FOR CONTINUATION OF CARE.
[2019-11-21 08:00] VITALS: BP 120/57
[2019-11-21] MEDS: PANTOPRAZOLE 40 MG VIAL IV SCH (08:42)
[2019-11-21 08:57] LABS: BASOPHILS % (AUTO) 0.6 % (0.0-2.0); EOSINOPHILS % (AUTO) 2.1 % (0.0-6.0); HEMATOCRIT 36 % (39-51); HEMOGLOBIN 12.1 g/dL (13.5-17.5); LYMPHOCYTES % (AUTO) 19.9 % (20.0-44.0); MEAN CORPUSCULAR HGB CONC 33 g/dl (31.0-36.0); MEAN CORPUSCULAR VOLUME 92 fL (80-96); MONOCYTES # (AUTO) 0.5 /CMM (0.1-1.30); MONOCYTES % (AUTO) 9.6 % (2.0-12.0); NEUTROPHILS # (AUTO) 3.4 /CMM (1.8-8.9); NEUTROPHILS % (AUTO) 67.8 % (43.0-81.0); PLATELET COUNT (AUTO) 174 /CMM (150-450); RED BLOOD CELL COUNT(AUTO) 3.94 MIL/uL (4.5-6.0)
[2019-11-21 09:09] LABS: CALCIUM, SERUM 7.8 mg/dL (8.5-10.1); CREATININE 0.9 mg/dL (0.6-1.3); MAGNESIUM 1.5 mg/dL (1.8-2.4); PHOSPHORUS 3.2 mg/dL (2.5-4.9); POTASSIUM 4.6 mmol/L (3.5-5.1)
[2019-11-21] MEDS: Magnesium 1GM/D5W 100ML PREMIX 100 ML IV SCH ×2 (10:22→12:19)
[2019-11-21] MEDS: HYDROCODONE/APAP 5/325MG 1 EACH TABLET PO PRN ×3 (12:28→22:20)
--- NOTE | 2019-11-21 13:59 | NUR ---
rn note staple removed, skin cleansed with NS and pat dry, covered with mepilex dressing. pt tolerated well, no bleeding, no redness noted.
[2019-11-21 16:00] VITALS: BP 122/81
--- NOTE | 2019-11-21 19:30 | NUR ---
RN NOTE, PATIENT IN BED RESTING AT RA BREATHING EVEN AND UNLABORED, NO SOB/ACUTE DISTRESS NOTED AT THIS TIME, NO IV ACCES, DISLODGED IN PRIOR SHIFT AND PATIENT REFUSED ANOTHER ONE, HOB ELEVATED, ALL NEEDS PROVIDED, WILL CONTINUE TO MONITOR CLOSELY.
[2019-11-21 20:00] VITALS: BP 143/86
[2019-11-21] MEDS ORDERED: ZOLPIDEM TARTRATE 5 MG TABLET PO ONE (22:30)
[2019-11-22] MEDS: BLOOD SUGAR DIAGNOSTIC 1 EACH STRIP IN SCH ×6 (02:02→21:58)
[2019-11-22] MEDS: INSULIN REGULAR, HUMAN 100 UNIT/ML 3 ML VIAL SQ PRN ×5 (02:03→22:01)
[2019-11-22] MEDS: HYDROCODONE/APAP 5/325MG 1 EACH TABLET PO PRN ×4 (02:13→20:34)
--- NOTE | 2019-11-22 02:56 | NUR ---
RN NOTES, PATIENT REFUSED TO CHECK BLOOD SUGAR AGAIN AFTER GOT A 66MG/dL READING, RISKS AND BENEFITS EXPLAINED, STILL REFUSED, BUT HE DRANK ANOTHER ORANGE JUICE AND HALF SANDWICH AT THIS TIME, WILL CONTINUE TO MONITOR CLOSELY. PATIENT ALSO REFUSED PICTURES, EXPLAINED PRONS AND CONS, STILL REFUSED.
[2019-11-22 04:00] VITALS: BP 108/62
--- NOTE | 2019-11-22 06:49 | NUR ---
RN CLOSING NOTES, PATIENT IN BED A/O X4, BREATHING EVEN AND UNLABORED, NO SOB/ACUTE DISTRESS NOTED WITH OPTIMAL AT ROOM AIR, WITH ONE LOW BLOOD SUGAR LEVEL DURING THE SHIFT, REFUSED CARE AT TIMES, REFUSED PICTURES LAST NIGHT, WILL ENDORSE CONTINUITY OF CARE TO ONCOMING NURSE.
--- NOTE | 2019-11-22 07:10 | NUR ---
MS RN OPENING NOTE RECEIVED BEDSIDE REPORT. PT ASLEEP IN BED, ON ON ROOM AIR, SATURATING WELL, RESPIRATIONS EVEN AND UNLABORED, NO SIGNS OF RESPIRATORY DISTRESS NOTED. BED IN LOW POSITION, LOCKED, CALL LIGHT WITHIN REACH.
--- NOTE | 2019-11-22 07:42 | NUR ---
PT REFUSED HIS VITALS CHECKED
[2019-11-22 08:23] LABS: BASOPHILS % (AUTO) 0.5 % (0.0-2.0); EOSINOPHILS % (AUTO) 2.3 % (0.0-6.0); HEMATOCRIT 36 % (39-51); HEMOGLOBIN 12.1 g/dL (13.5-17.5); LYMPHOCYTES % (AUTO) 27.4 % (20.0-44.0); MEAN CORPUSCULAR HGB CONC 33 g/dl (31.0-36.0); MEAN CORPUSCULAR VOLUME 92 fL (80-96); MONOCYTES % (AUTO) 10.1 % (2.0-12.0); NEUTROPHILS % (AUTO) 59.7 % (43.0-81.0); PLATELET COUNT (AUTO) 160 /CMM (150-450); RED BLOOD CELL COUNT(AUTO) 3.92 MIL/uL (4.5-6.0); WHITE BLOOD COUNT (AUTO) 5.7 K/uL (4.3-11.0)
[2019-11-22 08:24] LABS: LYMPHOCYTES # (AUTO) 1.6 /CMM (0.8-4.8); MONOCYTES # (AUTO) 0.6 /CMM (0.1-1.30); NEUTROPHILS # (AUTO) 3.4 /CMM (1.8-8.9)
[2019-11-22 08:26] LABS: CALCIUM, SERUM 8.1 mg/dL (8.5-10.1); MAGNESIUM 1.8 mg/dL (1.8-2.4); POTASSIUM 4.9 mmol/L (3.5-5.1)
--- NOTE | 2019-11-22 10:15 | NUR ---
Social service consult requested by MD for homelessness. Per MD notes and chart review, pt is a 54-year-old male who presented to the emergency department with complaints of generalized abdominal pain. He denies any nausea, vomiting or diarrhea. The patient had a recent admission for bowel perforation. MANAGER STRATEGY conducted assessment via phone. Pt is alert and oriented x 4. Pt is cooperative and cordial with SW. Pt states he has been homeless for the past 2 weeks. Pt was residing at the [facility] but is no longer living there due to breaking curfew. Pt is interested in usp placement. Pt reports to be a chronic alcoholic and drinks beer daily. Pt denies any drug use. Pt states he drinks beer whenever he has the money to buy it. Pt receives food stamps and GR. Pt has a psychiatric diagnosis of Bipolar and Anxiety and was taking Seroquel and Ambien. Pt reports to be diabetic and is not taking medication. Pt denies SI/HI and visual/auditory hallucinations at this time. MANAGER STRATEGY informed pt that a list of 24/7 homeless shelters and homeless packet was given to SHAY Medeiros to give to him upon discharge. Homeless packet includes list of 24/7 shelters at [facility], [facility] winter usp placement list, [facility] located at [address] [facility]. ; [facility] [place], [address], [place] ; [facility] [place], [address] [facility] [place] ; [facility] Homeless Resource Directory which includes food stamps, transitional housing, showers and hot meals etc; Mental Health clinics such as [facility] ; [facility] ; Health clinics;[facility] and Alcohol treatment centers such as [facility], ; [facility] Substance Abuse Hotline and [facility] . Homeless Resources and Homeless Patient Waiver form was given to HELDER Medeiros to place in pt's chart for him to sign upon discharge. Pt will need a TAP card upon discharge. MANAGER STRATEGY updated pt's RN Hilary regarding pt's discharge plan. No other social service needs are requested at this time.
--- NOTE | 2019-11-22 10:32 | NUR ---
WOUND CARE CONSULT: PT REFUSED SKIN ASSESSMENT. SPOKE WITH RN WHO STATES PT IS AMBULATORY AND CONTINENT AND THAT KADEN WERE PREVIOUSLY REMOVED. WILL SEE PRN.
[2019-11-22 16:00] VITALS: BP 105/71
--- NOTE | 2019-11-22 19:35 | NUR ---
RN OPEN NOTES RECEIVED PATIENT AWAKE IN BED. A/OX4. NO SIGNS OF DISTRESS OR DISCOMFORT. BREATHING EVEN AND UNLABORED. HAS NO IV ACCESS AT THIS TIME. BED IN LOW LOCKED POSITION WITH SIDE RAILS X2. CALL LIGHT WITHIN REACH. WILL CONTINUE TO MONITOR.
[2019-11-22 20:00] VITALS: BP 117/80
--- NOTE | 2019-11-22 20:35 | NUR ---
RN NOTES ADMINISTERED NORCO 5/325 ORDERED FOR ABD PAIN 04/03, AT PATIENT REQUEST. VSS. WILL CONTINUE TO MONITOR.
[2019-11-22] MEDS ORDERED: INSULIN GLARGINE, 100 UNIT/ML CARTRIDGE SQ SCH (22:00)
[2019-11-22] MEDS ORDERED: ZOLPIDEM TARTRATE 5 MG TABLET PO PRN (23:30)
[2019-11-23] MEDS: BLOOD SUGAR DIAGNOSTIC 1 EACH STRIP IN SCH ×3 (00:05→09:26)
[2019-11-23 04:00] VITALS: BP 102/64
[2019-11-23] MEDS: HYDROCODONE/APAP 5/325MG 1 EACH TABLET PO PRN (04:24)
--- NOTE | 2019-11-23 06:55 | NUR ---
RN CLOSING NOTES PATIENT RESTING IN BED, EASILY AROUSABLE. A/OX4. NO SIGNS OF DISTRESS OR DISCOMFORT. BREATHING EVEN AND UNLABORED. HAS NO IV ACCESS AT THIS TIME. ALL NEEDS MET. NO SIGNIFICANT CHANGES THROUGH THE NIGHT. BED IN LOW LOCKED POSITION WITH SIDE RAILS X2. CALL LIGHT WITHIN REACH. WILL ENDORSE TO AM SHIFT FOR YOLANDA.
[2019-11-23 08:00] VITALS: BP_SYST 116; BP_DIAS 72; BP_DIAS 85
[2019-11-23] MEDS: INSULIN REGULAR, HUMAN 100 UNIT/ML 3 ML VIAL SQ PRN (09:26)
[2019-11-23] MEDS ORDERED: HYDR-4384 PO (10:49)
--- NOTE | 2019-11-23 12:30 | NUR ---
PT LEFT UNIT IN STABLE CONDITION. ALL DISCHARGE PAPERWORK GIVEN, SIGNED FOR, VALUABLES ALL ACCOUNTED FOR.
== END 2019-11-23 12:30 | disposition home or self-care (01) | DRG 775 ==
LOC: ER 20:55 → MEDSG1 11-20 00:22 → TELE1 11-20 00:45 → MEDSG1 11-21 10:50
PROVIDERS: ADMIT Family Medicine; ATTEND Nurse Practitioner Acute Care
DX: F10.129 Alcohol abuse with intoxication, unspecified (principal); E87.2 Acidosis; E11.65 Type 2 diabetes mellitus with hyperglycemia; K86.1 Other chronic pancreatitis; E87.5 Hyperkalemia; E86.9 Volume depletion, unspecified; E87.1 Hypo-osmolality and hyponatremia; Z59.0 Homelessness; Y90.8 Blood alcohol level of 240 mg/100 ml or more; K44.9 Diaphragmatic hernia without obstruction or gangrene; K21.9 Gastro-esophageal reflux disease without esophagitis; Z79.4 Long term (current) use of insulin; Z91.19 Patient's noncompliance with other medical treatment and regimen; Z87.891 Personal history of nicotine dependence; F32.9 Major depressive disorder, single episode, unspecified; F29 Unspecified psychosis not due to a substance or known physiological condition; D63.8 Anemia in other chronic diseases classified elsewhere
CPT/HCPCS: 36415; 74250-TC; 80048-TC; 80061-TC; 80076-TC; 82947-TC; 82962-TC; 83690-TC; 83735-TC; 84100-TC; 85025-TC; 87081-TC; 93307-TC; 93970-TC; C9113; G0378; G0480; J1815; J2060; J2270; J2405; J3411; J3475; J3490; J7030; J7042; J7050; J7060; Q9963; Q9967

== ENCOUNTER 2019-12-01 23:09 | Emergency (ER) | payer OTHER ==
[~2019-12-01] VITALS: Ht 167.6 cm; Wt 51.7 kg
[~2019-12-01 23:09] MED LIST changes: +GABA-532 PO; +HYDR-4384 PO; +ZOLP10TA2 PO
--- NOTE | 2019-12-01 23:30 | NUR ---
PT AAOX4. AMBULATORY WITH STEADY GAIT. C/O SI TO SHOOT SELF -HI. PT ALSO C/O ABD PAIN THAT IS RADIATING TO HIS BACK S/P SURGERY ABOUT TWO WEEKS AGO. PT PLACED ON MONITOR AND PULSE OX. VSS. MD AT BEDSIDE. WILL CONTINUE TO MONITOR PT. AWAITING MD ORDERS.
--- NOTE | 2019-12-01 23:31 | NUR ---
PT PLACED IN GOWN, BELONINGS PLACED IN LOCKER.
[2019-12-01] MEDS ORDERED: HYDROCODONE/APAP 10/325MG 1 EA TABLET ONE (23:38)
--- NOTE | 2019-12-01 23:40 | NUR ---
URINE SENT TO LAB
--- NOTE | 2019-12-01 23:42 | NUR ---
FURNITURE MECHANIC AT BEDSIDE
--- NOTE | 2019-12-01 23:43 | NUR ---
SECURITY CALLED FOR WANDING.
[2019-12-01 23:49] LABS: BASOPHILS % (AUTO) 0.8 % (0.0-2.0); EOSINOPHILS % (AUTO) 2.1 % (0.0-6.0); HEMATOCRIT 32 % (39-51); HEMOGLOBIN 10.8 g/dL (13.5-17.5); LYMPHOCYTES # (AUTO) 2.1 /CMM (0.8-4.8); LYMPHOCYTES % (AUTO) 37.4 % (20.0-44.0); MEAN CORPUSCULAR HGB CONC 34 g/dl (31.0-36.0); MEAN CORPUSCULAR VOLUME 93 fL (80-96); MONOCYTES # (AUTO) 0.3 /CMM (0.1-1.30); MONOCYTES % (AUTO) 5.8 % (2.0-12.0); NEUTROPHILS # (AUTO) 3.1 /CMM (1.8-8.9); NEUTROPHILS % (AUTO) 53.9 % (43.0-81.0); PLATELET COUNT (AUTO) 159 /CMM (150-450); RED BLOOD CELL COUNT(AUTO) 3.46 MIL/uL (4.5-6.0); WHITE BLOOD COUNT (AUTO) 5.7 K/uL (4.3-11.0)
[2019-12-01 23:52] LABS: APPEARANCE,URINE Clear (CLEAR); BILIRUBIN,URINE Negative (NEGATIVE); BLOOD, URINE Negative Ery/uL (NEGATIVE); COLOR,URINE Light yellow (YELLOW); KETONES,URINE Negative (NEGATIVE); LEUKOCYTE ESTERASE ,URINE Negative (NEGATIVE); NITRITE, URINE Negative (NEGATIVE); PH,URINE 6.5 (5.0-8.0); PROTEIN,URINE Negative (NEGATIVE); UGLUCOSE 500 MG/DL mg/dL (NEGATIVE); UROBILINOGEN,URINE 0.2 EU/dL (0.2)
[2019-12-02] MEDS ORDERED: HYDROCODONE/APAP 10/325MG 1 EA TABLET PO ONE
[2019-12-02 00:13] LABS: ALBUMIN 3.2 g/dL (3.4-5.0); BILIRUBIN,DIRECT 0.1 mg/dL (0.0-0.2); BILIRUBIN,TOTAL 0.2 mg/dL (0.2-1.0); CREATININE 1.2 mg/dL (0.6-1.3); TOTAL PROTEIN, SERUM 6.8 g/dL (6.4-8.2)
[2019-12-02 00:14] LABS: SALICYLATE 1.5 mg/dL (2.8-20.0)
--- NOTE | 2019-12-02 00:33 | NUR ---
PT REFUSING TO HAVE AN IV INSERTED. PT STATED "GET THE FUCK AWAY FROM ME."
[2019-12-02] MEDS ORDERED: INSULIN REGULAR, HUMAN 100 UNIT/ML 10 ML VIAL ONE (01:29)
[2019-12-02] MEDS ORDERED: INSULIN REGULAR, HUMAN 100 UNIT/ML 10 ML VIAL SQ ONE (01:30)
--- NOTE | 2019-12-02 01:56 | NUR ---
Patient is resting comfortably in bed with eyes closed. Easily aroused. VSS.
--- NOTE | 2019-12-02 03:46 | NUR ---
PT ON CONSTANT OBSERVATION AND RESTING COMFORTABLY IN BED. VSS. NO ACUTE DISTRESS NOTED. 1:1 SITTER AT BEDSIDE FOR SAFETY
--- NOTE | 2019-12-02 04:31 | NUR ---
PT is awake. BG checked. Pt given urinal.
--- NOTE | 2019-12-02 05:28 | NUR ---
PT HYPOGLYCEMIC, MD AWARE. PT GIVEN 3 ORANGE JUICES.
[2019-12-02 05:45] LABS: CALCIUM, SERUM 8.3 mg/dL (8.5-10.1); CREATININE 0.9 mg/dL (0.6-1.3); POTASSIUM 3.6 mmol/L (3.5-5.1)
--- NOTE | 2019-12-02 06:56 | NUR ---
PT ASLEEP. EASILY AROUSED. VSS.
--- NOTE | 2019-12-02 08:22 | NUR ---
PROVIDED W FOOD TRAY, TOLERATED PO WELL.
--- NOTE | 2019-12-02 09:07 | NUR ---
MIGUEL CHARLES AT BEDSIDE, PER SW, PATIENT STATES HE IS NOT SUICIDAL ANYMORE.
--- NOTE | 2019-12-02 10:23 | NUR ---
SOCIAL SERVICE ASSESSMENT: SW met with pt at bedside, pt refused to speak to SW and after several attempts to engage pt in conversation pt yelled, "what! I don't want to talk to a social media job titles they don't help, you're not going to help leave me alone." SW informed pt that if he did not engage in conversation then pt could not receive help in the ER. Pt then stated that he wanted to be discharged and stated that he is homeless and wanted a TAP card to return to [place]. Pt refused to provide an address and also denied suicidal/homicidal ideation and denied visual/auditory hallucinations. SW provided pt with homeless resources and also placed a copy in pts chart.
--- NOTE | 2019-12-02 11:19 | NUR ---
ASSUMING CARE OF PT. PT CURRENTLY ASLEEP IN BED, EASILY AROUSES. VSS. WILL CONT TO MONITOR.
--- NOTE | 2019-12-02 11:30 | NUR ---
LAB AT BEDSIDE FOR REDRAW
--- NOTE | 2019-12-02 12:09 | NUR ---
IV removed. Catheter intact and site benign. Pressure and 4x4 applied to site. No bleeding noted.Patient given written and verbal discharge instructions. Patient verbalizes understanding of instructions. Patient is ambulatory with steady gait. Refuses offer of care home placement. Patient given list of available shelters in surrounding area. Signed homeless waiver form, all belongings returned. Name band removed.
[2019-12-02 12:45] VITALS: BP 126/72
== END 2019-12-02 12:20 | disposition home or self-care (01) ==
LOC: ER 23:12
DX: E11.65 Type 2 diabetes mellitus with hyperglycemia (principal); R45.851 Suicidal ideations; F32.9 Major depressive disorder, single episode, unspecified; Z79.899 Other long term (current) drug therapy; Z79.4 Long term (current) use of insulin
CPT/HCPCS: 36415 ×2; 80048 ×2; 80076; 80305; 80307 ×2; 80329; 81001; 82962 ×4; 83690; 85025; 96372; 99285; G0480; J1815; J7030; 81000-TC